=== PATIENT | female | born 1960 | race African-American/Black ===

== ENCOUNTER 2016-11-29 07:34 | Day surgery (SDC) | payer BC ==
--- NOTE | ~2016-11-29 | EGD ---
EGD REPORT [facility] [address] [place] [place] [address] NAME: ARMIDA HILL : [birth year] [place] [facility] [place] [id number] AGE: 56 ADM/REG DATE : 11/29/16 MR#: [id number] REPORT SERV DATE: 11/29/16 DICTATED BY: ANDI HORTON DATE: 11/29/16 REPORT STATUS : Draft TRANSCRIBED BY: [facility] DATE: 11/29/16 Endoscopy Center Patient Name: Armida Hill Date of : 1960 Attending MD: ANDI HORTON MD Procedure Date No Time: 11/29/2016 Procedure: Colonoscopy Indications: Personal history of Crohn's disease Referring MD: RAYMOND EDWARDS Medicines: as per anesthesia Complications: No immediate complications. Procedure: Pre-Anesthesia Assessment: - ASA Grade Assessment: III - A patient with severe systemic disease. After I obtained informed consent, the scope was passed under direct vision. Throughout the procedure, the patient's blood pressure, pulse, and oxygen saturations were monitored continuously. The PCF [id number] was introduced through the anus and advanced to the cecum, identified by appendiceal orifice and ileocecal valve. The colonoscopy was performed without difficulty. The patient tolerated the procedure. The quality of the bowel preparation was adequate to identify polyps. Findings: The perianal and digital rectal examinations were normal. Localized pseudopolyps were found in the cecum. Biopsies were taken with a cold forceps for histology. Internal hemorrhoids were found during endoscopy and were mild. Impression: - Pseudopolyps in the cecum. Biopsied. - Internal hemorrhoids. Recommendation: - Await pathology results. - Repeat colonoscopy for surveillance based on pathology results. Procedure Code(s): --- Professional --- 61875, Colonoscopy, flexible, proximal to splenic flexure; with biopsy, single or multiple Diagnosis Code(s): --- Professional --- K64.8, Other hemorrhoids K51.40, Inflammatory polyps of colon without complications EGD REPORT [facility] [address] [address] NAME: ARMIDA HILL : [birth year] [place] [facility] [place] [id number] AGE: 56 ADM/REG DATE : 11/29/16 MR#: [id number] REPORT SERV DATE: 11/29/16 DICTATED BY: ANDI HORTON. DATE: 11/29/16 REPORT STATUS : Draft TRANSCRIBED BY: [employer] DATE: 11/29/16 Z87.19, Personal history of other diseases of the digestive system CPT copyright 2013 [employer]. All rights reserved. The codes documented in this report are preliminary and upon marble polisher review may be revised to meet current compliance requirements. ANDI HORTON MD 11/29/2016 11:19 AM This report has been signed electronically. Number of Addenda: 0 Note Initiated On: 11/29/2016 10:42 AM Scope Withdrawal Time 0 hours 6 minutes 40 seconds [address] [facility] [id number]
[~2016-11-29 07:34] MED LIST: CALAN120 MG PO; MUCINEX1200 MG PO; PERCOCET1 TA2 PO; ZESTORETIC1 TA1 PO; ZOFRAN4 PO
== END 2016-11-29 23:59 | disposition home or self-care (01) ==
LOC: DMU 07:34
PROVIDERS: Internal Medicine Gastroenterology
PROC: 0DBH8ZX Excision of Cecum, Via Natural or Artificial Opening Endoscopic, Diagnostic (ICD-10-PCS; principal; 2016-11-29 09:30)
DX: K52.89 Other specified noninfective gastroenteritis and colitis (principal); K64.8 Other hemorrhoids; Z87.19 Personal history of other diseases of the digestive system; I10 Essential (primary) hypertension; Z79.899 Other long term (current) drug therapy
CPT/HCPCS: 88305